=== PATIENT | female | born 1980 | race Caucasian/White ===

== ENCOUNTER 2016-09-24 07:17 | Emergency (ER) | payer MEDICAID ==
[~2016-09-24] VITALS: Ht 160 cm; Wt 76.0 kg
[~2016-09-24 07:17] MED LIST: FERR15DR19 PO; PREN1TAB49 PO
[2016-09-24 07:22] VITALS: Ht 160 cm; Wt 76.0 kg
--- NOTE | 2016-09-24 08:11 | ERD ---
ER Documentation Chief Complaint Date/Time DATE: 09/24/16 TIME: 08:10 Chief Complaint VAG BLEED SINCE 0600 AM , 12 WEEKS PREG HPI 28-year-old female who is A0 12 weeks comes of vaginal bleeding that started this morning at 6 AM. She describes as heavy bleeding with clots, cramping pain in the suprapubic region. Had an ultrasound that was yesterday, she was told that she was 12 weeks and there was a normal . She denies any fevers, chills, chest pain, shortness breath or dizziness peer ROS All systems reviewed and are negative except as per history of present illness. Medications Home Meds Reported Medications Ferrous Sulfate (Iron) 15 Mg/1 Ml Drops, 15 MG PO, BOTTLE 10/22/15 Vits W-Ca,Fe,Fa(<1MG) () 1 Tab Tablet, 1 TAB PO DAILY 02/12/11 Allergies Allergies: Coded Allergies: No Known Drug Allergy (Verified Allergy, Unknown, 11/18/15) PMhx/Soc Medical and Surgical Hx: pt denies Medical Hx, pt denies Surgical Hx Hx Alcohol Use: No Hx Substance Use: No Hx Tobacco Use: No Smoking Status: Never smoker Physical Exam Vitals Vital Signs Date Time Temp Pulse Resp B/P Pulse Ox O2 Delivery O2 Flow Rate FiO2 09/24/16 07:22 97.8 88 18 130/80 100 Physical Exam General: Well-developed, well-nourished. The patient appears in no acute distress. HEENT: Head is normocephalic, atraumatic. No scleral icterus. Neck: Supple. Nontender. Lungs: Clear to auscultation. Normal air movement. Heart: Regular rate and rhythm. S1 and S2 are normal. No murmurs, gallops, or rubs. Abdomen: Soft, nontender, nondistended. Bowel sounds are normoactive. Extremities: No clubbing or cyanosis. Normal pulses. Moving extremities x 4. No weakness. Neurologic: Alert and oriented 3. No focal deficits. Skin: Normal turgor. No rash or lesions. Result Diagram: 09/24/16 0750 Results 24 hrs Laboratory Tests Test 09/24/16 07:50 09/24/16 09:45 White Blood Count 7.610^3/ul Red Blood Count 4.3410^6/ul Hemoglobin 13.0g/dl Hematocrit 37.4% Mean Corpuscular Volume 86.2fl Mean Corpuscular Hemoglobin 30.0pg Mean Corpuscular Hemoglobin Concent 34.8g/dl Red Cell Distribution Width 13.7% Platelet Count 49289^3/UL Mean Platelet Volume 9.1fl Neutrophils % 60.8% Lymphocytes % 27.7% Monocytes % 5.8% Eosinophils % 5.1% Basophils % 0.3% Nucleated Red Blood Cells % 0.0/100WBC Neutrophils # 4.610^3/ul Lymphocytes # 2.110^3/ul Monocytes # 0.410^3/ul Eosinophils # 0.410^3/ul Basophils # 0.010^3/ul Nucleated Red Blood Cells # 0.010^3/ul Beta HCG, Quantitative 68377.0mIU/ml Urine Color YELLOW Urine Clarity SLIGHTLY CLOUDY Urine pH 8.0 Urine Specific [place] 1.013 Urine Ketones NEGATIVEmg/dL Urine Nitrite NEGATIVEmg/dL Urine Bilirubin NEGATIVEmg/dL Urine Urobilinogen NEGATIVEmg/dL Urine Leukocyte Esterase NEGATIVELeu/ul Urine Microscopic RBC > 182/HPF Urine Microscopic WBC 10/HPF Urine Hemoglobin 3+mg/dL Urine Glucose NEGATIVEmg/dL Urine Total Protein NEGATIVEmg/dl DIAGNOSTIC IMAGING REPORT Patient: ADWOA CRUZ : 1980 Age: 36 Sex: F MR #: [id number] DOS: 09/24/16 0735 Ordering MD: DICK SHULTZ PA-C Location: [facility] Room/Bed: PROCEDURE: US OB. CLINICAL INDICATION: . Evaluate size and dates. Vaginal bleeding. TECHNIQUE: Transabdominal imaging of the gravid uterus was performed. Images are reviewed on a high-resolution PACS workstation. COMPARISON: None available FINDINGS: Intrauterine is identified. The crown-rump length equals 6.27 cm. The estimated gestational age equals 12 weeks 2 days by ultrasound criteria. Normal cardiac activity is identified. Moderate subchorionic hemorrhage is identified. No other acute abnormality is seen. The ovaries are not well visualized. IMPRESSION: 1. Single live intrauterine with an estimated gestational age of 12 weeks 2 days by ultrasound criteria and an estimated date of delivery of 2017. 2. Moderate subchorionic hemorrhage is present. RPTAT: PP .Joe Núñez MD, MD Date Time Electronically viewed and signed by .Joe Núñez MD, on 09/24/2016 09:18 .B/ CC: DICK SHULTZ PA-C Procedures/MDM ER course: Blood and urine obtained. Medical decision making: This 28-year-old female comes in with vaginal bleeding , currently 12 weeks, single live intrauterine seen at 12 weeks and 2 days and ultrasound today. Patient does come in with vaginal bleeding will be given strict ER return precautions, as well as signs and symptoms of a miscarriage. I suspect patient presents with threatened , versus vaginal bleeding with subchorionic hemorrhage. There is no evidence of ectopic , she is hemodynamically stable and appropriate to be managed outpatient. She is to recheck in 3-4 days with her OB and was given a list of facilities for follow-up. Patient's Rh status positive, there is no indication for RhoGam. Departure Diagnosis: Primary Impression: Threatened Additional Impression: Subchorionic hemorrhage Condition: Good DICK SHULTZ PA-C Sep 24, 2016 08:11
[2016-09-24 08:25] LABS: BASOPHILS % 0.3 % (0.0-2.0); EOSINOPHILS # 0.4 10^3/ul (0.0-0.5); EOSINOPHILS % 5.1 % (0.0-7.0); HEMATOCRIT 37.4 % (37.0-47.0); LYMPHOCYTES # 2.1 10^3/ul (0.8-2.9); LYMPHOCYTES % 27.7 % (15.0-51.0); MEAN CORPUSCULAR HGB CONC 34.8 g/dl (32.0-37.0); MEAN CORPUSCULAR VOLUME 86.2 fl (82.0-101.0); MEAN PLATELET VOLUME 9.1 fl (7.4-10.4); MONOCYTE # 0.4 10^3/ul (0.3-0.9); MONOCYTES % 5.8 % (0.0-11.0); NEUTROPHIL # 4.6 10^3/ul (1.6-7.5); NEUTROPHILS % 60.8 % (39.0-77.0); PLATELET COUNT 341 10^3/UL (140-415); RED BLOOD COUNT 4.34 10^6/ul (4.20-5.40); RED CELL DISTRIBUTION WIDTH 13.7 % (11.5-14.5); WHITE BLOOD COUNT 7.6 10^3/ul (4.8-10.8)
--- NOTE | 2016-09-24 09:18 | RADRPT ---
PROCEDURE: US OB. CLINICAL INDICATION: . Evaluate size and dates. Vaginal bleeding. TECHNIQUE: Transabdominal imaging of the gravid uterus was performed. Images are reviewed on a [employer] gh-resolution PACS workstation. COMPARISON: None available FINDINGS: Intrauterine is identified. The crown-rump length equals 6.27 cm. The estimated gestatio nal age equals 12 weeks 2 days by ultrasound criteria. Normal cardiac activity is identified. Moderate subchorionic hemorrhage is identified. No other acute abnormality is seen. The ovaries ar e not well visualized. IMPRESSION: 1. Single live intrauterine with an estimated gestational age of 12 weeks 2 days by ultra sound criteria and an estimated date of delivery of 04/06/2017. 2. Moderate subchorionic hemorrhage is present. RPTAT: PP .Joe Núñez MD, Date Time Electronically viewed and signed by .Joe Núñez MD, on 09/24/2016 09:18 .B/
[2016-09-24 10:46] LABS: ADD UMIC YES; UR ASCORBIC ACID NEGATIVE (NEGATIVE); UR BILIRUBIN (Dip) NEGATIVE (NEGATIVE); UR BLOOD (Dip) 3+ mg/dL (NEGATIVE); UR CLARITY SLIGHTLY CLOUDY (CLEAR); UR COLOR YELLOW (YELLOW); UR GLUCOSE (Dip) NEGATIVE (NEGATIVE); UR KETONES (Dip) NEGATIVE (NEGATIVE); UR LEUKOCYTE ESTERASE (Dip) NEGATIVE Leu/ul (NEGATIVE); UR NITRITE (Dip) NEGATIVE (NEGATIVE); UR NONSQUAMOUS EPITHELIAL CELL 27 /HPF (NONE SEEN); UR RBC > 182 /HPF (0-5); UR SPECIFIC GRAVITY (Dip) 1.013 (1.003-1.030); UR TOTAL PROTEIN (Dip) NEGATIVE (NEGATIVE); UR UROBILINOGEN (Dip) NEGATIVE (NEGATIVE)
[2016-09-24 11:26] VITALS: BP 111/74; PULSE 76; RESP 18
== END 2016-09-24 11:27 | disposition home or self-care (01) ==
LOC: FTE 07:17
DX: O20.0 Threatened abortion (principal); O36.8910 Maternal care for other specified fetal problems, first trimester, not applicable or unspecified; Z3A.12 12 weeks gestation of pregnancy
CPT/HCPCS: 36415; 76801; 76817; 81001; 84702; 85025; 86900; 86901; Z7502

== ENCOUNTER 2017-03-14 13:18 | Inpatient (IN) | END 2017-03-16 14:10 | disposition home or self-care (01) | DRG 775 ==